=== PATIENT | male | born 1980 | race African-American/Black ===

== ENCOUNTER 2020-06-23 08:24 | Emergency (ER) | payer SELFPAY ==
[~2020-06-23] VITALS: Ht 172.7 cm; Wt 77.0 kg
[2020-06-23 09:32] VITALS: BP 123/86
[2020-06-23 10:10] LABS: CHLORIDE 105 mEq/L (98-107)
[2020-06-23 10:14] LABS: ETHANOL BLOOD < 10 mg/dL
[2020-06-23 10:18] LABS: CREATINE KINASE 322 IU/L (39-308)
== END 2020-06-23 10:48 | disposition home or self-care (01) ==
LOC: ER 08:24
DX: R56.9 Unspecified convulsions (principal); F19.10 Other psychoactive substance abuse, uncomplicated
CPT/HCPCS: 36415; 71045; 80053; 80307; 80320; 80329; 82550; 84443; 93005; 99285; G0480